=== PATIENT | female | born 1970 | race African-American/Black ===

== ENCOUNTER 2022-06-10 15:20 | Emergency (ER) | payer OTHER ==
[~2022-06-10] VITALS: Ht 162.6 cm; Wt 78.6 kg
[2022-06-10] MEDS ORDERED: ACETAMINOPHEN 325 MG TAB PO ONE (15:45)
[2022-06-10] MEDS ORDERED: ACETAMINOPHEN500 MG PO (16:40)
[2022-06-10] MEDS ORDERED: IBUPROFEN200 MG PO (16:40)
== END 2022-06-10 16:46 | disposition home or self-care (01) ==
LOC: FSED 15:41
DX: S43.492A Other sprain of left shoulder joint, initial encounter (principal); M19.012 Primary osteoarthritis, left shoulder; X50.0XXA Overexertion from strenuous movement or load, initial encounter; Y92.89 Other specified places as the place of occurrence of the external cause; F17.210 Nicotine dependence, cigarettes, uncomplicated
CPT/HCPCS: 99283